=== PATIENT | female | born 1950 | race Caucasian/White ===

== ENCOUNTER 2016-11-05 08:03 | Day surgery (SDC) | payer MEDICARE ==
--- NOTE | 2016-11-03 15:44 | PCM.ANEPRE ---
Anesthesia Pre-Op Review Reason for Review: STOP BANG 11/18 Anesthesia Recommendations: Proceed with Procedure Additional Comments 66 yo f BMI 38, stop bang 11/18. Has hydronephrosis, time sensitive surgery. Proceed with surgery, final decision by anesthesiologist DOS. Chart Reviewed by: Shena Murillo DO November 03, 2016 15:44
[~2016-11-05] VITALS: Ht 167.6 cm; Wt 107.5 kg
[2016-11-05] VITALS (10 sets, daily range): BP systolic 140–156; BP diastolic 70–87; PULSE 59–73; RESP 15–17; O2SAT 95–100
[~2016-11-05 08:03] MED LIST: ACET-2561 PO; ASPI-973 PO; ATRV10T PO; CeFAZolin Inj 2 GM in IV Premix 1 EACH IV ONE; LACT1CAP65 PO; LORA10CA PO; NAPR220C11 PO; ONDA8TAB7 PO; POLY17PO6 PO
[2016-11-05] MEDS ORDERED: Ondansetron 2 mg/mL 2 mL Inj ONE (08:04)
[2016-11-05] MEDS ORDERED: Propofol 10,000 mCg/mL 20 mL Inj ONE (08:04)
[2016-11-05] MEDS: Lactated Ringer's 1,000 ML IV SCH ×2 (08:22→09:43)
[2016-11-05] MEDS ORDERED: Lactated Ringer's 500 ML IV PRN (09:36)
[2016-11-05] MEDS ORDERED: Lactated Ringer's 1,000 ML IV SCH (09:36)
[2016-11-05] MEDS ORDERED: Ondansetron 2 mg/mL 2 mL Inj IVPUSH PRN (09:40)
[2016-11-05] MEDS ORDERED: Atropine 0.4 mg/mL Inj IVPUSH PRN (09:40)
[2016-11-05] MEDS ORDERED: Labetalol 5 mg/mL 4 mL Inj IV PRN (09:40)
[2016-11-05] MEDS ORDERED: EPHEDrine Sulfate 50 mg/mL Inj IVPUSH PRN (09:40)
[2016-11-05] MEDS ORDERED: fentaNYL-PF 50 mCg/mL 2 mL Inj IVPUSH PRN (09:40)
[2016-11-05] MEDS ORDERED: Phenylephrine 10,000 mCg/mL Inj IVPUSH PRN (09:40)
[2016-11-05] MEDS ORDERED: Iopamidol-300 50 mL Inj IV ONE (10:00)
[2016-11-05] MEDS ORDERED: HYDROcodone-APAP 5-325 mg Tablet PO PRN (10:40)
--- NOTE | 2016-11-05 11:06 | DRSVH ---
PROCEDURE: X-RAY RETROGRADE UROGRAPHY INDICATIONS: C-ARM ASSISTED PROCEDURE TECHNIQUE: 7 intra-operative images acquired by the Urology service. COMPARISON: [facility], CT, CT CHEST ABD PELVIS W CON, 10/13/2016, 9:36. FINDINGS: Moderate right hydronephrosis is present in no definite intraluminal filling defects are s een within the collecting system. Visualized portions of the ureter appear prominent proximally and within normal limits distally where visualized. There are several small rounded intraluminal filling defects which may represent gas bubbles. No extravasation. Placement of ureteral stent. IMPRESSION: 1. Moderate right hydronephrosis and prominence of the proximal ureter which otherwise appears within normal limits in caliber where visualized. 2. Several small tiny intramural filling defects within the ureter which may represent gas bubbles. Correlate with real-time examination. 3. Ureteral stent placed. Dictated by: John CHONG Interpreted: George Winter MD on 11/05/2016 at 11:01 Transcribed by: MACY on 11/05/2016 at 11:05 Approved by: George Winter M.D. on 11/05/2016 at 12:36
--- NOTE | 2016-11-05 13:47 | PCM.HPANE ---
Patient Data Surgeon Admitting Provider: Attending Provider:Nuris Griffith MD Primary Care Physician:Baldemar Meléndez MD Other Provider:Gris Wallaceingham Anesthesia Reason for Visit Right Ureteral Stricture Ht/WT & BMI Height (Feet): 5 Height (Inches): 6 Weight (Kilograms): 109.134 Body Mass Index 38.00 Allergies Coded Allergies: Sulfa (Sulfonamide Antibiotics) (Verified Allergy, Severe, hives, 11/03/16) Uncoded Allergies: TEGADERM (Allergy, Severe, RASH/HIVES, 11/05/16) Past Anesthesia History Anesthesia History: Denies:: Abnormal Airway, Anesthesia Reactions, Difficult Intubation, Fam Anesthesia Reaction, Fam Malignant Hypertherm, Malignant Hyperthermia Diabetes History Hx Diabetes?: No Type of Diabetes: Type II Glycemic Control: Diet Controlled MRSA MRSA: No Medications Home Meds Incl Beta Bhavin: No Reported Medications Atorvastatin (Lipitor)10 Mg Tab10 Mg PO HS Ref 0 10/15/16 Lactobacillus Acidophilus (Probiotic)1 Each Capsule1 Each PO DAILY 09/10/16 Loratadine (Claritin)10 Mg [id number] Mg PO DAILY Ref 0 09/10/16 Aspirin 81 Mg Yztsqi22 Mg PO DAILY Ref 0 08/06/16 Acetaminophen (Extra Strength Non-Aspirin)500 Mg [id number] Mg PO prn 08/06/16 Polyethylene Glycol 3350 (Miralax)17 Gm Powd.pack17 Gm PO prn 09/19/15 Ondansetron ODT (Zofran ODT)8 Mg Tablet8 Mg PO Q4H PRN For Nausea 08/08/15 Naproxen Sodium (Aleve)220 Mg [id number] Mg PO prn 06/04/15 Discontinued Reported Medications Phenylephrine HCl (Sudafed PE)10 Mg Nessjk42 Mg PO prn 09/10/16 Prochlorperazine Maleate (Compazine)10 Mg Agbqsl33 Mg PO Q8HRS PRN 08/08/15 History History of ENT Problems?: No HEENT History: Denies:: Abnormal Airway Difficult Intubation Dysphagia Hearing Problem Sinus Problem Denture Type: None Teeth Condition: Within Normal Limits Hx of Heart Problems?: No Cardiovascular History: Positive for:: Heart Murmur (REPORTED BY PT-NOT NOTED ON PHYSICAL EXAM BY SURGEON) Denies:: AICD Abdominal Aortic Aneurism Atrial Fibrillation Cardiac Surgery Chest Pain Congestive Heart Failure Coronary Artery Disease Edema Hypertension (HYPERLIPIDEMIA) Irregular Heartbeat Pacemaker Peripheral Vascular Rheumatic Fever Thrombophlebitis Valvular Heart Disease (STRESS ECHO 09/2016 EF 60-65%) Hx of Respiratory Problem?: Yes Respiratory History: Denies:: Asthma COPD Chest Surgery Cough Dyspnea Emphysema Hemoptysis Oxygen Administration Pneumonia Pulmonary Embolism Tuberculosis Use of C-PAP Machine (SNORES) Use of Inhalers / NEBS Hx Neurologic Problems?: Yes Neurological History: Denies:: Alzheimer's Disease CVA Dementia Dizziness Headaches Multiple Sclerosis Parkinson's Disease Peripheral Neuropathy Seizures TIA Hx of GI Problems?: Yes Gastrointestinal History: Denies:: Cirrhosis Diverticulitis Gall Bladder Disease Gastroesphageal Reflux Gastrointestinal Bleeding Heartburn Hepatitis Hiatal Hernia Liver Disease Rectal Bleeding Other GI Pertinent History: S/P PORTACATH PLCMT HX METASTATIC RECTAL CA-CURRENTLY UNDERGOING CHEMO Hx of Problems?: Yes Genitourinary History: Positive for:: Urinary Tract Infection (HX OF) Denies:: HX of Hemodialysis Kidney Stones HX of Peritoneal Dialysis: No Other Pertinent History: C/OF HYDRONEPHROSIS/LYMPHADENOPATHY, NOCTURIA, INCONTINENCE & DRIBBLING RT URETERAL STRICTURE=CURRENT PROBLEM Female Hx: Denies:: Currently Endometriosis Pelvic Inflammatory Problems with Breasts? Skin History: Denies:: History Skin Disorders? Pressure Ulcers Hx Musculoskeletal Problems?: No Musculoskeletal History: Denies:: Back Injury Degenerative Joint Fibromyalgia Joint Replacement Musculoskeletal Trauma Myasthenia Gravis Osteoarthritis Rheumatoid Arthritis Systemic Lupus Hx of Psycho/Social Problems?: Yes Psycho Social History: Positive for:: Hx Depression (SITUATIONAL) Denies:: Anxiety Bipolar Disorder Hx Surgeries?: Yes (D+C ,PORTACATH PLCMT) Hx Any Other Health Problems?: Yes Other History: Positive for:: Cancer (MET. RECTAL CA) Hospitalization Denies:: Endocrine Disease Thyroid Disease History Blood Transfusions: Denies:: Blood Transfuse Reaction Blood Transfusions Hx Diabetes: No Hx Alcohol Use: NoHx Substance Use: No Smoking Status: Current Every Day Smoker Have You Smoked inLast 12 mo: YesApprox How Many Cigarettes/day: 1/2 PPD Stop/Bang S-Snoring: Do You Snore Loudly: Yes T-Tired: feel tired, fatigued: Yes O-Obsered: Observed not breath: Yes P-Blood Pressure: treated: No B- Body Mass Index > 35 kg/m2: Yes A- Age over 50: Yes N- Neck Large Circumference: Yes G- Gender Male: No MITALI Total Score: 6 Risk Assessment Category Category 1A: Patient has history of documented sleep apnea, and HAS NOT received any narcotic, sedative or anesthesia administration during this stay. Category 1B: Patient has history of documented sleep apnea, and HAS received any narcotic , sedative or anesthesia administration during this stay Category 2: Patient has SUSPECTED Obstructive Sleep Apnea, and HAS received any narcotic , sedative or anesthesia administration during this stay. Category 3: Patient has SUSPECTED Obstructive Sleep Apnea and HAS NOT received narcotic, sedative or anesthesia administration during this stay. Category 4: Outpatient in Procedural Areas with known sleep apnea or who screen positive for High Risk via the STOP/BANG questionnaire. Exam Exam Vital Signs Vital Signs Date Time Temp Pulse Resp B/P Pulse Ox O2 Delivery O2 Flow Rate FiO2 11/05/16 08:46 36.2 62 17 140/76 95 Room Air General Appearance: Alert, Oriented X3, Cooperative, No Acute Distress HEENT/AIRWAY: MP 2 Lungs: Clear to Auscultation, Diminished Heart: Exam Unremarkable, Regular Rate/Rhythm, No Murmurs/Rubs/Gallops Meds/Labs/Diagnostics Admission Meds Current Medications Lactated Ringer's (Lr) 1,000 ml @ 120 mls/hr Q8H20M IV Last administered on t 08:22; Start 11/05/16 at 05:00; Stop 11/05/16 at 13:19 Plan Impression Patient chart reviewed, patient interviewed and anesthestic plan with risks, benefits, and alternatives discussed, and informed consent obtained. NPO per Anesth. Guidelines: Yes ASA Physical Status: ASA3 Severe Disease (BMI 38) Anesthetic Plan: GA Bene/Risks/Altern/Consents: Yes HP Complete Prior to Induction: Yes Augustine Abreu MD November 05, 2016 08:51
--- NOTE | 2016-11-05 13:48 | PCM.ANEP1 ---
Post Anesthesia PACU Phase 1 Assessment Vital Signs Vital Signs Date Time Temp Pulse Resp B/P Pulse Ox O2 Delivery O2 Flow Rate FiO2 11/05/16 11:45 73 150/87 95 Room Air 11/05/16 11:08 59 16 143/79 97 Room Air 11/05/16 11:00 36.3 62 16 156/80 96 Room Air 11/05/16 10:45 64 15 145/82 98 Room Air 11/05/16 10:40 65 15 155/79 98 Room Air 11/05/16 10:35 36.2 67 16 151/80 100 Simple Mask 10 11/05/16 10:30 70 17 149/70 100 Simple Mask 10 11/05/16 10:25 71 16 154/80 100 Simple Mask 10 11/05/16 10:22 36.5 70 16 147/87 100 Simple Mask 10 11/05/16 08:46 36.2 62 17 140/76 95 Room Air Anesthetic Administered: GA Level of Alertness: Awake, talking OLMSTEAD's with Equal Strength: Yes Pain: No Nausea or Vomiting: No CV Function & Hydration Stable: Yes Airway Device: Oxygen Delivery: Room Air Lungs: Clear to Auscultation, Diminished Dermatome Level: Full Sensation PACU Phase 2 Assessment Complications: No Follow up Care: N/A Patient Instructions Provided: N/A Augustine Abreu MD November 05, 2016 13:48
--- NOTE | 2016-11-05 14:48 | OP ---
[address] [address] OPERATIVE REPORT PATIENT: LEAH MONTIEL : 1950 MR#: [id number] ADMIT: 11/05/2016 JOB ID: [id number] DATE OF SURGERY: 11/05/2016 SURGEON: Nuris Griffith M.D. PREOPERATIVE DIAGNOSIS(ES): Right hydronephrosis. POSTOPERATIVE DIAGNOSIS(ES): 1. Right hydronephrosis. 2. Right ureteral stricture. BUSINESS UNIT CONTROLLER: None. FINDINGS: A 4-5 cm mid and distal right ureteral stricture on retrograde pyelogram. PROCEDURE PERFORMED: 1. Cystoscopy with right retrograde pyelogram. 2. Right ureteral stent placement. ANESTHESIA: General. ESTIMATED BLOOD LOSS: None. DRAINS: A 6 x 24 right double-J ureteral stent. COMPLICATIONS: None. CONDITION: Stable. INDICATION FOR THE PROCEDURE: The patient is a 66-year-old woman with metastatic colon cancer. She was found on CT scan to have right hydronephrosis. She presents for right ureteral stent placement. DESCRIPTION OF PROCEDURE: After informed consent was obtained, the patient was taken to the operating room. A time-out was performed identifying correct patient, surgical site and procedure. General anesthesia was smoothly induced. She was given intravenous antibiotics just prior to the start of the procedure. She was placed in the lithotomy position and all pressure points were identified and appropriately padded. Her genitals were then prepped and draped in the usual sterile fashion. A 22-Libyan rigid cystoscope was applied to the patient's urethra and advanced to the bladder. The bladder was drained. The bladder was systematically inspected and it appeared normal. The right ureteral orifice was cannulated with a 5-Libyan open-ended Pollack catheter. Retrograde pyelogram was performed. There was dilation of the distal right ureter to a moderate degree. More proximally at the proximal aspect of the distal ureter and involving the mid ureter was a 4-5 cm ureteral stricture plainly evident on retrograde pyelogram. These images are preserved with the patient's chart in PACS system. Proximal to the stricture, there was hydroureteronephrosis. The hydronephrosis was to a severe degree. A Sensor tip wire was used to cannulate the Pollack catheter. It was advanced to the renal pelvis. The Pollack was then removed and a 6 x 24 double-J stent was loaded over it and advanced to the renal pelvis as seen under fluoroscopy. The wire was then removed leaving a nice coil in the patient's bladder as seen under direct vision. Instruments were removed from the patient's body. She was reversed from general anesthesia and taken to PACU in good and stable condition. LUIS CARLOS
== END 2016-11-05 23:59 | disposition home or self-care (01) ==
LOC: SAS 08:03
PROVIDERS: ATTEND Urology
PROC: 0T768DZ Dilation of Right Ureter with Intraluminal Device, Via Natural or Artificial Opening Endoscopic (ICD-10-PCS; principal; 2016-11-05 09:45)
DX: N13.1 Hydronephrosis with ureteral stricture, not elsewhere classified (principal); C20 Malignant neoplasm of rectum; F17.200 Nicotine dependence, unspecified, uncomplicated; Z79.82 Long term (current) use of aspirin; E11.9 Type 2 diabetes mellitus without complications
CPT/HCPCS: 52332; 74420; C2617; J0690; J1885; J2405; J7120; Q9967